=== PATIENT | male | born 1950 | race Caucasian/White ===

== ENCOUNTER 2016-06-18 05:27 | Observation (INO) | payer MEDICARE, BC ==
[~2016-06-18] VITALS: Ht 177.8 cm; Wt 106.5 kg
[2016-06-18] VITALS (8 sets, daily range): BP systolic 108–139; BP diastolic 71–83; PULSE 62–81; TEMP 97.3–98.6
[~2016-06-18 05:27] MED LIST: ASPIRIN 81M81 MG/TA2 PO; LOPRESSOR 225 MG/TAB PO; ZOCOR 40MG40 MG PO
[2016-06-19 02:08] VITALS: BP 115/71; PULSE 82; TEMP 98
[2016-06-19 05:07] VITALS: BP 128/77; PULSE 86; TEMP 98.6
[2016-06-19 09:06] VITALS: BP 123/81; PULSE 69; TEMP 97.5
[2016-06-19 14:54] VITALS: BP 149/86; PULSE 76; TEMP 97
== END 2016-06-19 16:01 | disposition home or self-care (01) ==
LOC: SDCO 05:27 → SURG 09:05 → SDCO 06-19 11:00 → SURG 06-19 11:01
DX: C67.0 Malignant neoplasm of trigone of bladder (principal); F17.290 Nicotine dependence, other tobacco product, uncomplicated
CPT/HCPCS: OP; A9284; G0378; J0690; J1100; J1170; J2704; J7120; J9280; Q9967

== ENCOUNTER 2017-01-14 06:04 | Day surgery (SDC) | payer MEDICARE, BC ==
[~2017-01-14] VITALS: Ht 180.3 cm; Wt 48.5 kg
[2017-01-14] VITALS (12 sets, daily range): BP systolic 104–154; BP diastolic 62–94; PULSE 63–85; TEMP 97.6–98.6
[2017-01-15 01:53] VITALS: BP 114/74; PULSE 78; TEMP 98.4
[2017-01-15 05:47] VITALS: BP 117/80; PULSE 75; TEMP 98.8
[2017-01-15 09:29] VITALS: BP 135/75; PULSE 80; TEMP 98.1
== END 2017-01-15 11:05 | disposition home or self-care (01) ==
LOC: SDCO 06:04 → SURG 10:30 → SDCO 01-15 11:05
DX: C67.6 Malignant neoplasm of ureteric orifice (principal); Z85.51 Personal history of malignant neoplasm of bladder; I10 Essential (primary) hypertension; M19.90 Unspecified osteoarthritis, unspecified site; F17.290 Nicotine dependence, other tobacco product, uncomplicated
CPT/HCPCS: OP; A9284; C1769; C2617; J0690; J2405; J2704; J3010; J7120; Q9967

== ENCOUNTER 2020-08-10 12:04 | Day surgery (SDC) | payer MEDICARE, BC ==
--- NOTE | 2020-07-15 11:19 | NUR ---
Pt is notified of pre-op positive COVID 19 test. Pt denies having any questions or concerns. Dr. Moffett's office is notified and this RN speaks to ANDREW Loyd who states that she will get his procedure rescheduled from 07/18 to 08/10. ANDREW Felipe and ANDREW Gaines in surgery are notified of results, as well. Results sent to appropriate reporting agencies.
[2020-08-10] VITALS (8 sets, daily range): BP systolic 106–134; BP diastolic 63–89; PULSE 58–72; TEMP 97.8–98.4
[~2020-08-10] VITALS: Ht 177.8 cm; Wt 101.8 kg
--- NOTE | 2020-08-10 14:45 | NUR ---
Patient is back from surgery. He is alert and oriented. Decreased CBI flow. Urine output at his time is clear, no color. Patient denies pain and nausea. Explained how to order food. His is at bedside. No other changes at this time. Call light within reach.
--- NOTE | 2020-08-10 17:30 | NUR ---
Guevara catheter discontinued as ordered by Dr Moffett. Primed catheter with 200ml of saline. Removed 20ml from catheter balloon and pulled catheter. Explained to patient he needs to void a few times before discharging to make sure his urine stays clear/pink without clots. He verbalized understanding. Patient tolerated the process well without pain. No other changes at this time. Call light within reach. at bedside.
--- NOTE | 2020-08-10 17:55 | NUR ---
Patient was able to void 100ml of clear pink urine. No complaints of pain with voiding.
--- NOTE | 2020-08-10 19:13 | NUR ---
Went over discharge instructions with patient and . No questions or concerns. Took IV out and held pressure. TERRIE Estes, walked patient out with all his belongings to return home with his .
== END 2020-08-10 19:15 | disposition home or self-care (01) ==
LOC: SDCO 12:04 → SURG 14:42 → SDCO 19:15
DX: C67.8 Malignant neoplasm of overlapping sites of bladder (principal); U07.1 COVID-19; Z79.82 Long term (current) use of aspirin; Z79.899 Other long term (current) drug therapy; Z82.49 Family history of ischemic heart disease and other diseases of the circulatory system
CPT/HCPCS: OP; J0690; J1100; J2405; J2704; J3010; J7120; Q9967

== ENCOUNTER 2020-08-29 11:51 | Day surgery (SDC) | payer MEDICARE, BC ==
[2020-08-29] VITALS (7 sets, daily range): BP systolic 97–116; BP diastolic 64–77; PULSE 64–72; TEMP 97.2–98
[~2020-08-29] VITALS: Ht 177.8 cm; Wt 100.0 kg
--- NOTE | 2020-08-29 15:45 | NUR ---
TO RM 8 PER CART FROM PACU. ALERT ORIENTED X3, TALKING TO AND NURSING STAFF. RUDD IN PLACE WITH CBI AT SLOW DRIP. RUDD BAG PATENT WITH LIGHT LIGHT YELLOW URINE NOTED. NO BLOOD NOTED. DENIES PAIN OR DISCOMFORT. DENIES NAUSEA.
--- NOTE | 2020-08-29 16:00 | NUR ---
RECEIVED MUFFIN AND WATER. SITTING UP AND WATCHING TV.
--- NOTE | 2020-08-29 16:15 | NUR ---
ATE 100% AND TOLERATED WELL RECEIVED 2ND MUFFIN AND GLASS OF WATER.
--- NOTE | 2020-08-29 16:30 | NUR ---
RECEIVED 3RD CUP OF WATER
--- NOTE | 2020-08-29 16:45 | NUR ---
DISCONTINUED CBI AND CATHETER REMOVED AND PATIENT TOLERATED WELL. NOTED 50CC LIGHT YELLOW URINE.
--- NOTE | 2020-08-29 17:00 | NUR ---
DRINKING ANOTHER CUP OF WATER.
--- NOTE | 2020-08-29 17:30 | NUR ---
VOIDED 200CC LIGHT YELLOW URINE INTO A URINAL.
--- NOTE | 2020-08-29 17:45 | NUR ---
RECEIVED DISCHARGE INSTRUCTIONS AND VERBALIZED UNDERSTANDING. DISCONTINUED IV AND INT PATIENT GETTING DRESSED AND WENT TO GET THE CAR.
--- NOTE | 2020-08-29 17:59 | NUR ---
DISCHARGED PER WC BY NURSING STAFF TO PRIVATE CAR IN CARE OF HIS .
== END 2020-08-29 18:05 | disposition home or self-care (01) ==
LOC: SDCO 11:51
DX: C61 Malignant neoplasm of prostate (principal); Z79.82 Long term (current) use of aspirin; I10 Essential (primary) hypertension; E78.5 Hyperlipidemia, unspecified; U07.1 COVID-19; F17.210 Nicotine dependence, cigarettes, uncomplicated; M19.90 Unspecified osteoarthritis, unspecified site
CPT/HCPCS: J0690; J1100; J2405; J2704; J3010; J7120